=== PATIENT | female | born 1940 | race Caucasian/White ===

== ENCOUNTER 2016-10-29 21:28 | Emergency (ER) | payer MEDICARE ==
[~2016-10-29 21:28] MED LIST: Iopamidol 370 76% 100 ML VIAL ONE
[2016-10-29] MEDS ORDERED: Ondansetron HCl/PF 4 MG/2 ML Vial ONE (21:41)
[2016-10-29 21:51] LABS: #Basophils 0.1 thou/uL (0.0-0.2); #Eosinphils 0.3 thou/uL (0.0-0.7); #Lymphocytes 2.7 thou/uL (1.20-3.40); #Monocytes 0.5 thou/uL (0.11-0.59); #Neutrophils 5.2 thou/uL (1.40-6.50); %Basophils 0.7 % (0.0-1.0); %Eosinophils 2.9 % (0.0-10.0); %Lymphocytes 30.8 % (21.0-51.0); %Neutrophils 59.6 % (42.0-75.0); Hemoglobin 12.3 g/dL (12.0-16.0); Mean Corpuscular HGB CONC 33.2 g/dL (32.0-36.0); Mean Corpuscular Hemoglobin 29.9 pg (27.0-31.0); Mean Platelet Volume 11.3 fL (7.4-10.4); Platelet Count 233 thou/uL (130-400); RBC Distribution Width 12.4 % (11.5-14.5); Red Blood Cell (RBC) Count 4.11 mill/uL (4.20-5.40); White Blood Cell (WBC) Count 8.7 thou/uL (4.8-10.8)
[2016-10-29 22:06] LABS: ALT (SGPT) 11 U/L (8-55); AST (SGOT) 24 U/L (5-34); Albumin 4.5 g/dL (3.4-4.8); Alkaline Phosphatase 113 U/L (40-150); Anion Gap 17 mmol/L (10-20); BUN (Urea Nitrogen) 19 mg/dL (9.8-20.1); Bilirubin, Total 0.5 mg/dL (0.2-1.2); Calc. Creatinine Clearance 0 mL/min (70-130); Carbon Dioxide 23 mmol/L (23-31); Chloride 104 mmol/L (98-107); Estimated GFR-MDRD 56; Globulin 3.6 g/dL (2.4-3.5); Glucose 110 mg/dL (83-110); Lipase 47 U/L (8-78); Potassium 3.7 mmol/L (3.5-5.1); Protein, Total 8.1 g/dL (6.0-8.3); Sodium 140 mmol/L (136-145)
[2016-10-29 22:07] LABS: CKMB 1.9 ng/mL (0-6.6); Troponin I 0.011 ng/mL (< 0.028)
--- NOTE | 2016-10-29 22:28 | RAD ---
FRONTAL RADIOGRAPH CHEST UPRIGHT AND SUPINE FRONTAL IMAGING OF ABDOMEN AND PELVIS 10/29/16 COMPARISON: None. HISTORY: Nausea and vomiting. FINDINGS: Frontal imaging of the chest demonstrates no pneumothorax, pleural fluid, focal consolidation, or al veolar edema. There is mild pulmonary hyperinflation and increased interstitial density. No free int raperitoneal air noted on upright imaging of the abdomen. No air fluid levels or dilated bowel noted . Moderate lumbar spine degenerative change. There is a hip arthroplasty on the left. IMPRESSION: No evidence of small bowel obstruction or free intraperitoneal air. No radiographic evidence of acut e cardiopulmonary disease. POS: [facility]
--- NOTE | 2016-10-29 22:45 | CT ---
HEAD CT WITHOUT CONTRAST 10/29/16 COMPARISON: None. HISTORY: Altered mental status. TECHNIQUE: Serial axial CT imaging at 5 mm intervals from vertex through skull base without contrast. FINDINGS: The imaged paranasal sinuses/mastoid air cells are well aerated. There is no displaced calvarial fra cture. There is no intracranial hemorrhage, midline shift, mass effect, or ventricular enlargement. IMPRESSION: No intracranial hemorrhage or displaced calvarial fracture. POS: [facility]
[2016-10-29] MEDS ORDERED: Meclizine HCl 25 MG TAB ONE (23:00)
--- NOTE | 2016-10-29 23:21 | CT ---
CT OF THE ABDOMEN AND PELVIS WITH CONTRAST 10/29/16 COMPARISON: No prior comparison. CLINICAL HISTORY: Peristent nausea and vomiting. FINDINGS: Patchy nonspecific opacities are partially imaged within the lung bases. There is mild hyperdensity of the gallbladder wall without abnormal distention or pericholecystic fluid identified. Punctate hy podensity is present within the lateral segment left hepatic lobe, too small to further characterize . Granulomatous calcification of the spleen present. Moderate hiatal hernia. No adrenal mass. Small hypodensity involves the left kidney, too small to further characterize. Excreted contrast media wit hin each urinary collecting system limits evaluation for potential calculi. The bowel is not reliabl y assessed without enteric contrast opacification. There is retained fecal material present througho ut the colon. There is diffuse vascular disease. No free air. There is a mixed density mass containi ng soft tissue and probable fat density of the presacral space, incompletely evaluated on the basis of post contrast imaging along, which precludes reliable assessment for detection of enhancement. Th is mass is lobular in morphology and measures 4.9 cm transverse x 2.8 cm AP. Partially imaged left h ip prosthesis is present. Osseous degenerative change present. IMPRESSION: 1. Mixed density presacral mass incompletely assessed on the basis of this exam. Correlation wi th prior imaging would be helpful to confirm stability. If not available, followup with dedicated pr e and post contrast CT pelvis on a nonemergent basis is recommended for further characterization. 2. Additional details are described above. Code T POS: [facility]
[2016-10-29 23:32] LABS: Clarity Hazy (Clear); Glucose, Urine (Dipstick) Negative (Negative); Leukocyte Trace (Negative); Nitrite Negative (Negative); Protein, Urine (Dipstick) Negative (Neg-Trace); Specific Gravity, Urine 1.015 (1.005-1.030)
[2016-10-29 23:33] LABS: Bacteria/HPF Rare-Few HPF (None Seen); Bilirubin Negative (Negative); Blood, Urine Negative (Negative); RBC/HPF 0-3 HPF (0-3); Squamous Epithelial 0-3 HPF (0-3); Urobilinogen 0.2 mg/dL (0.2-1.0)
--- NOTE | 2016-10-29 23:35 | CT ---
CT ANGIOGRAM OF THE CHEST 10/29/16 COMPARISON: None. HISTORY: Chest pain. elevated D-dimer. TECHNIQUE: Serial axial CT imaging is obtained at 2.5 mm intervals from the thoracic inlet through the upper ab domen with IV contrast using a CT angiogram protocol. Coronal and oblique sagittal 3D reformatted im aging obtained. FINDINGS: There is no axillary lymphadenopathy. No mediastinal or hilar lymphadenopathy noted. No significant pleural, pericardial or mediastinal fluid. There is a small/moderate sized hiatal hernia noted. Limited assessment of the upper abdomen appears grossly unremarkable. There is atherosclerotic calcification of the aortic arch. Calcified nodes are seen in the left hilar region, evidence of prior granulomatous disease. There is no discrete pulmonary arterial filling defect seen to suggest the presence of acute pulmona ry embolism. There is a nonspecific nodular density in the left lower lobe on axial image 69 measuring 6-7 mm. Th ere are scattered areas of subpleural and central lobular emphysematous change noted bilaterally. No acute osseous abnormality is appreciated. IMPRESSION: 1. No evidence for pulmonary embolism. 2. Scattered areas of central lobular and subpleural cystic/emphysematous change. 3. 7 mm noncalcified pulmonary nodule in left lower lobe for which followup CT examination in s ix months is advised. Code T POS: [facility]
== END 2016-10-29 23:36 | disposition home or self-care (01) ==
LOC: MADERS 21:28
DX: H83.09 Labyrinthitis, unspecified ear (principal); R22.2 Localized swelling, mass and lump, trunk; E78.5 Hyperlipidemia, unspecified; I10 Essential (primary) hypertension; M10.9 Gout, unspecified; E66.9 Obesity, unspecified
CPT/HCPCS: 70450; 71275; 74022; 74177; 80053; 81003; 81015; 82553; 83690; 84484; 85025; 85379; 93005; 96374; J2405

== ENCOUNTER 2017-05-24 12:28 | Outpatient (CLI) | payer MEDICARE ==
[~2017-05-24 12:28] MED LIST changes: -Iopamidol 370 76% 100 ML VIAL ONE; +Iopamidol 370 76% 125 ML VIAL FS ONE
--- NOTE | 2017-05-24 15:00 | CT ---
CT CHEST WITH IV CONTRAST: History: Lung nodule. Follow up. Comparison: 10-29-16 FINDINGS: Scattered areas of parenchymal scarring are again demonstrated. A small focus of nodularity on the pr evious study at the left posterolateral lung base is no longer visible. Calcified granulomata, most n otable at the right lung base, are stable. No pleural fluid, lobar consolidation, or pneumothorax. Th ere is calcification within the arterial structures. No evidence of mediastinal adenopathy. Hiatal he rnia is noted. IMPRESSION: 1. COPD. No evidence of persistent non-calcified parenchymal nodule. 2. Atherosclerosis. 3. Hiatal hernia. POS: [facility]
--- NOTE | 2017-05-24 15:16 | CT ---
CT PELVIS WITH AND WITHOUT IV CONTRAST: History: Pelvic mass. Comparison: 10-29-16 FINDINGS: Urinary bladder is incompletely distended. Left hip prosthesis is evident. There is no evidence of blanquita wel obstruction. There are degenerative changes of the lumbar spine, right hip, and sacroiliac joints . Immediately anterior to the mid to lower sacrum, a well circumscribed heterogeneous fat containing ma ss is stable. The mass is 3.9 cm length x 5.0 cm width x 3.6 cm depth. It may represent a teratoma or other benign process. Follow up in 1-2 years would be sufficient. POS: [facility]
== END 2017-05-24 12:29 | disposition home or self-care (01) ==
LOC: MADRAD 12:28
PROVIDERS: ATTEND Physician Assistant
DX: R93.8 Abnormal findings on diagnostic imaging of other specified body structures (principal); R93.5 Abnormal findings on diagnostic imaging of other abdominal regions, including retroperitoneum; J44.9 Chronic obstructive pulmonary disease, unspecified; I70.90 Unspecified atherosclerosis; K44.9 Diaphragmatic hernia without obstruction or gangrene
CPT/HCPCS: 36415; 71260; 72194; 82565

== ENCOUNTER 2019-07-19 10:31 | Outpatient (CLI) | payer MEDICARE ==
[2019-07-19] MEDS ORDERED: Iopamidol 370 76% 100 ML VIAL ONE (10:49)
--- NOTE | 2019-07-19 13:37 | CT ---
CT ABDOMEN AND PELVIS WITH ORAL AND IV CONTRAST: HISTORY: Abnormal CT scan followup. COMPARISON: 10/29/2016 and 05/24/2017. FINDINGS: Calcified granuloma in the right lung base is again seen. There is a moderate-sized hiatal hernia. Calcified granulomas are again noted in the spleen. The liver, pancreas, adrenal glands, and kidneys are normal. No calcified gallstones are seen. No free air, free fluid, or lymphadenopathy is seen in the abdomen or pelvis. The small bowel loops are not abnormally dilated. There is colonic divert iculosis without diverticulitis. There are vascular calcifications without evidence of aneurysmal dilatation of the abdominal aorta. There are degenerative changes with levoscoliosis of the lumbar spine. Postop changes of left hip ar throplasty are again noted. The fat-containing heterogeneous presacral mass measuring 3.5 x 5 x 4 cm in stable. IMPRESSION: 1. Stable fat-containing presacral mass. 2. Moderate hiatal hernia. 3. Colonic diverticulosis. POS: [facility]
== END 2019-07-19 10:32 | disposition home or self-care (01) ==
LOC: MADLAB 10:31
PROVIDERS: ATTEND Physician Assistant
DX: R93.5 Abnormal findings on diagnostic imaging of other abdominal regions, including retroperitoneum (principal); K44.9 Diaphragmatic hernia without obstruction or gangrene; K57.30 Diverticulosis of large intestine without perforation or abscess without bleeding; M53.3 Sacrococcygeal disorders, not elsewhere classified
CPT/HCPCS: 36415; 74177; 82565; 84520; Q9967

== ENCOUNTER 2024-04-01 17:33 | Emergency (ER) | payer MEDICARE, OTHER ==
[2024-04-01] MEDS ORDERED: Meclizine HCl 25 MG TAB ONE (17:56)
[2024-04-01] MEDS ORDERED: Amoxicillin/Potassium Clav 875 MG TAB ONE (17:56)
[2024-04-01 18:09] LABS: #Basophils 0.1 thou/uL (0.0-0.2); #Eosinophils 0.3 thou/uL (0.0-0.7); #Lymphocytes 3.1 thou/uL (1.20-3.40); #Monocytes 0.5 thou/uL (0.11-0.59); #Neutrophils 2.9 thou/uL (1.40-6.50); %Basophils 1.1 % (0.0-1.0); %Eosinophils 3.7 % (0.0-10.0); %Lymphocytes 45.2 % (21.0-51.0); %Monocytes 7.4 % (0.0-10.0); %Neutrophils 42.6 % (42.0-75.0); Hematocrit 34.5 % (36.0-47.0); Hemoglobin 10.9 g/dL (12.0-16.0); Mean Corpuscular HGB CONC 31.7 g/dL (32.0-36.0); Mean Corpuscular Hemoglobin 30.1 pg (27.0-31.0); Mean Corpuscular Volume 94.9 fl (78.0-98.0); Mean Platelet Volume 10.4 fL (7.4-10.4); Platelet Count 282 10x3/uL (130-400); RBC Distribution Width 12.9 % (11.5-14.5); Red Blood Cell (RBC) Count 3.63 mill/uL (4.20-5.40); White Blood Cell (WBC) Count 6.8 10x3/uL (4.8-10.8)
[2024-04-01 18:23] LABS: ALT (SGPT) 14 U/L (8-55); AST (SGOT) 28 U/L (5-34); Alkaline Phosphatase 104 U/L (40-110); Anion Gap 16 mmol/L (10-20); BUN (Urea Nitrogen) 24 mg/dL (9.8-20.1); Bilirubin, Total 0.5 mg/dL (0.2-1.2); Calc. Creatinine Clearance 0 mL/min (70-130); Calcium 9.7 mg/dL (7.8-10.44); Carbon Dioxide 20 mmol/L (23-31); Chloride 106 mmol/L (98-107); Estimated GFR 46; Globulin 3.1 g/dL (2.4-3.5); Glucose 95 mg/dL (83-110); Potassium 4.1 mmol/L (3.5-5.1); Protein, Total 7.1 g/dL (5.8-8.1); Sodium 138 mmol/L (136-145)
== END 2024-04-01 18:46 | disposition home or self-care (01) ==
LOC: MADERS 17:33
DX: J01.90 Acute sinusitis, unspecified (principal); R42 Dizziness and giddiness; R29.700 NIHSS score 0; I10 Essential (primary) hypertension; E78.5 Hyperlipidemia, unspecified; E03.9 Hypothyroidism, unspecified; Z79.82 Long term (current) use of aspirin; Z55.6 Problems related to health literacy; Z79.899 Other long term (current) drug therapy
CPT/HCPCS: 36415; 80053; 85025; 93005; 99284